=== PATIENT | male | born 1960 | race Caucasian/White ===

== ENCOUNTER 2019-03-07 06:59 | Day surgery (SDC) | payer OTHER ==
[2019-03-07] MEDS ORDERED: fentaNYL 0.05 MG/ML VIAL ONE (11:10)
[2019-03-07] MEDS ORDERED: LIDOCAINE 2% 100 MG/5 ML UJET TP ONE (11:11)
== END 2019-03-07 12:35 | disposition home or self-care (01) ==
LOC: MDS 06:59 → MMU 07:00 → MDS 12:35
PROVIDERS: ATTEND Internal Medicine Gastroenterology
DX: C18.7 Malignant neoplasm of sigmoid colon (principal); K62.1 Rectal polyp; K62.5 Hemorrhage of anus and rectum
CPT/HCPCS: 45385; 45388; 88305; J3010